=== PATIENT | female | born 1995 | race Caucasian/White ===

== ENCOUNTER 2021-05-25 14:20 | Emergency (ER) | payer SELFPAY ==
[~2021-05-25] VITALS: Ht 152.4 cm; Wt 95.0 kg
[2021-05-25 14:34] VITALS: BP 154/81
[2021-05-25] MEDS ORDERED: AMOX1TAB61 PO (15:18)
--- NOTE | 2021-05-25 15:19 | PHYS DOC ---
Past History Past Surgical History: Tonsillectomy Alcohol Use: None Adult General Chief Complaint Chief Complaint: ANIMAL BITE HPI HPI Patient is a 25 year old female who presents with a dog bite. Patient's own dog bit her this afternoon just prior to arrival. Was bit on the right wrist. She has some numbness over the back of the thumb. There are 2 puncture wounds. She has had a tetanus shot in the last 5 years. No weakness in the hand. Review of Systems Review of Systems Constitutional: Denies fever or chills [] Integument: Dog bite right wrist [] Neurologic: Numbness on the back of the hand. [] All other systems were reviewed and found to be within normal limits, except as documented in this note. Family History Family History No pertinent family history Allergies Allergies Allergies Coded Allergies Type Severity Reaction Last Updated Verified latex Allergy Unknown 05/25/21 Yes Physical Exam Physical Exam Constitutional: Obese. No distress. [] HENT: Normocephalic atraumatic] Eyes: PERRLA, EOMI, conjunctiva normal, no discharge. [] Cardiovascular: Regular rate. No peripheral edema r [] Lungs & Thorax: Normal work of breathing and chest excursion. [] Skin: 2 small (3 mm) puncture wounds on the ventral right wrist. [] Extremities: Radial pulse 2+ and right wrist. Right hand with brisk cap refill in all 5 fingers.. [] Neurologic: Numbness to touch over the dorsum of the right thumb. Motor intact through adjunct english instructor strength, finger abduction, wrist extension to test median, ulnar, and radial nerves (respectively). [] Current Patient Data Vital Signs Vital Signs Date Time Temp Pulse Resp B/P (MAP) Pulse Ox O2 Delivery O2 Flow Rate FiO2 05/25/21 14:34 98.2 88 16 154/81 99 Room Air EKG EKG [] Radiology/Procedures Radiology/Procedures X-ray right wrist [] Impressions: [place] [address] IMAGING REPORT Signed PATIENT: CHASITY HARPER EACCOUNT: [id number] : 1995 LOCATION: ER AGE: 25 SEX: F EXAM STATUS: REG ER ORD. PHYSICIAN: GUZMAN CASTILLO MD REASON: dog bite, eval for foreign body or fx PROCEDURE: WRIST 3V RIGHT XR RT WRIST 3VIEWS History: Dog bite, evaluate for foreign body or fracture. Comparison: None. Technique: 3 views of the right wrist. Findings: Osseous mineralization is normal. No fracture or dislocaton. No significant degenerative changes. Subcutaneous stranding at the radial aspect of the wrist. No radiopaque foreign body identified. Impression: 1. No radiopaque foreign body or acute osseous abnormality of the right wrist. Electronically signed by: Angus Conte MD (05/25/2021 3:28 PM) [id number] DICTATED AND SIGNED BY: ANGUS CONTE MD DATE: 05/25/21 1527 CC: GUZMAN CASTILLO MD; PCP,NO ~MTH0 0 Heart Score C/O Chest Pain: N/A Risk Factors: Risk Factors: DM, Current or recent (<one month) smoker, HTN, HLP, family history of CAD, obesity. Risk Scores: Risk Factors: DM, Current or recent (<one month) smoker, HTN, HLP, family history of CAD, obesity. Course & Med Decision Making Course & Med Decision Making Pertinent Labs and Imaging studies reviewed. (See chart for details) Patient 25-year-old female who presents with a dog bite to her right wrist. The patient's own dog. Dog shots are up-to-date. 2 puncture wounds on the right wrist were identified. No evidence of vascular injury. She does have some numbness over the posterior aspect of the hand, that may represent a small neuropraxia. She has motor function intact. Do not feel that she requires emergent orthopedic evaluation. Puncture wounds were irrigated thoroughly with tap water. Her tetanus is up-to-date. Police were notified of the dog bite. X-ray was obtained to evaluate for fracture or retained foreign body. The wound was left open to allow for adequate drainage. Augmentin was prescribed for antibiotic prophylaxis. 1516 Dragon Disclaimer Dragon Disclaimer This electronic medical record was generated, in whole or in part, using a voice recognition dictation system. Departure Departure: Impression: Primary Impression: Dog bite of right wrist Disposition: HOME / SELF CARE / HOMELESS Condition: IMPROVED Referrals: PCP,NO (PCP) Since you do not have a PCP, please call the number for the [facility] at [phone]. Additional Instructions: Please call the number attached to establish with a primary care office. Your bites are at risk for infection. You will need to take antibiotics to prevent this. Please take full course of Augmentin as prescribed. If you develop increasing swelling, pain, redness, heat, or thick drainage from the site these are all signs of infection and need to be evaluated immediately. Scripts Amoxicillin/Potassium Clav (AUGMENTIN 875-125 TABLET) 1 Each Tablet 1 TAB PO BID for Dog bite ppx for 7 Days, #14 TAB 0 Refills Prov: GUZMAN CASTILLO MD 05/25/21 GUZMAN CASTILLO MD May 25, 2021 15:18
--- NOTE | 2021-05-25 15:30 | RAD ---
XR RT WRIST 3VIEWS History: Dog bite, evaluate for foreign body or fracture. Comparison: None. Technique: 3 views of the right wrist. Findings: Osseous mineralization is normal. No fracture or dislocaton. No significant degenerative changes. Sub cutaneous stranding at the radial aspect of the wrist. No radiopaque foreign body identified. Impression: 1. No radiopaque foreign body or acute osseous abnormality of the right wrist. Electronically signed by: Angus Conte MD (05/25/2021 3:28 PM) [id number]
== END 2021-05-25 15:58 | disposition home or self-care (01) ==
LOC: ER 14:20
DX: S61.551A Open bite of right wrist, initial encounter (principal); W54.0XXA Bitten by dog, initial encounter; Y93.89 Activity, other specified; Y92.89 Other specified places as the place of occurrence of the external cause; Y99.8 Other external cause status
CPT/HCPCS: 73110; 99283

== ENCOUNTER 2021-05-27 08:09 | Emergency (ER) | payer SELFPAY ==
[~2021-05-27] VITALS: Ht 152.4 cm; Wt 121.0 kg
[~2021-05-27 08:09] MED LIST: AMOX1TAB61 PO
[2021-05-27] MEDS ORDERED: KETOROLAC 15 MG/ML VIAL. IVP ONE (08:30)
[2021-05-27] MEDS ORDERED: IV NORMAL SALINE 1,000ML 1,000 ML IV ONE (08:30)
--- NOTE | 2021-05-27 08:37 | PHYS DOC ---
Past History Additional Past Medical Histor: "Enlarged liver" Past Surgical History: Tonsillectomy Smoking: Non-smoker Alcohol Use: None Drug Use: Marijuana General Adult EDM: Chief Complaint: VAGINAL BLEEDING HPI: HPI: 25-year-old female presents with report of "heavy" vaginal bleeding x9 days. Patient reports history of heavy vaginal bleeding in the past however has not lasted as long as this episode. Patient denies history of use of blood thinners. Reports has not followed with DOCTOR NATUROPATHIC. Reports some back cramping pain. Denies fever or chills. Denies . Patient reports she does not "sleep with men". Patient does report some associated dizziness and lightheadedness. Review of Systems: Review of Systems: Constitutional: Denies fever or chills Eyes: Denies redness or eye pain HENT: Denies nasal congestion or sore throat Respiratory: Denies cough or shortness of breath Cardiovascular: Denies chest pain or palpitations GI: Reports pelvic cramping pain; denies nausea or vomiting /DOCTOR NATUROPATHIC: Denies dysuria or hematuria; reports abnormal heavy vaginal bleeding Musculoskeletal: Reports back cramping pain; denies joint pain Integument: Denies rash or skin lesions Neurologic: Denies headache, focal weakness or sensory changes Complete systems were reviewed and found to be within normal limits, except as documented in this note. Current Medications: Current Meds: Current Medications Medications (Trade) Dose Ordered Sig/Acacia Start Time Stop Time Status Last Admin Dose Admin Ketorolac Tromethamine (Toradol 15mg Vial) 15 mg 1X ONCE 05/27/21 08:30 05/27/21 08:31 UNV Sodium Chloride 1,000 ml @ 1,000 mls/hr 1X ONCE 05/27/21 08:30 05/27/21 09:29 UNV Allergies: Allergies: Allergies Coded Allergies Type Severity Reaction Last Updated Verified latex Allergy Unknown 05/27/21 Yes Physical Exam: PE: Constitutional: Well developed, obese, no acute distress, non-toxic appearance HENT: Normocephalic, atraumatic Eyes: Conjunctiva normal, no discharge Neck: Normal range of motion, supple Lungs & Thorax: No respiratory distress, equal chest rise and fall Abdomen: Soft, no tenderness, no guarding/rebound tenderness/distention Pelvic exam: Cassandra Pedersen RN, small clots noted to vaginal os, no significant active bleeding, no discharge noted, no CMT, no adnexal tenderness Skin: Warm, dry, no erythema, no rash Back: No tenderness, no CVA tenderness Extremities: No tenderness, ROM intact, no edema Neurologic: Alert and oriented X 3, no focal deficits noted Psychologic: Affect normal, judgment normal EKG: EKG: [] Radiology/Procedures: Radiology/Procedures: PROCEDURE: US PELVIS W/TV US PELVIS W/TV History: Reason: menorrhagia / Spl. Instructions: / History: Comparison: None Technique: Grayscale and color Doppler imaging of the pelvis was performed using transabdominal and transvaginal technique. Findings: The uterus measures 8.1 x 5.1 x 4.5 cm. Uterus has an unremarkable appearance. The endometrial stripe measures 2.1 mm. Right ovary measures 4.1 x 3.0 x 4.0 cm. Right ovarian cyst with peripheral daughter cysts measures 3.6 x 3.6 x 2.5 cm. Left ovary not identified due to positioning and overlying structures. Normal Doppler flow to the ovaries. No adnexal masses are seen. IMPRESSION: 1. Thickened endometrium depending on phase of menstruation. 2. Left ovarian cyst. Electronically signed by: Gary Munoz DO (05/27/2021 9:17 AM) [id number] Heart Score: C/O Chest Pain: N/A Course & Med Decision Making: Course & Med Decision Making Pertinent Labs and Imaging studies reviewed. (See chart for details) Patient presents with abnormal vaginal bleeding. Vital signs stable. Labs obtained and posted to chart. Upreg negative. H&H stable. Pelvic exam performed. Chlamydia/Gonorrhea cultures pending. Patient declines empiric treatment. Wet mount negative. Pelvic ultrasound without significant finding. Ovarian cyst noted. IV fluid hydration given. Patient stable for discharge with outpatient follow-up with PCP/DOCTOR NATUROPATHIC. Discussed findings and plan with patient, who acknowledges understanding and agreement. Roxanna Disclaimer: Roxanna Disclaimer: This electronic medical record was generated, in whole or in part, using a voice recognition dictation system. Departure Departure: Impression: Primary Impression: Menorrhagia Qualified Codes: N92.1 - Excessive and frequent menstruation with irregular cycle Additional Impression: Ovarian cyst Qualified Codes: N83.201 - Unspecified ovarian cyst, right side Disposition: HOME / SELF CARE / HOMELESS Condition: STABLE Referrals: PCP,MAX (PCP) Patient Instructions: Menorrhagia, [id number], Ovarian Cyst, [id number] Additional Instructions: Increase fluid hydration. Take over the counter Tylenol and/or Ibuprofen for pain or discomfort. JASMYNE JACKSON DO May 27, 2021 08:37
[2021-05-27 08:59] LABS: BASO # 0.1 x10^3/uL (0.0-0.2); BASO % 1 % (0-3); EOS # 0.1 x10^3/uL (0.0-0.7); EOS % 2 % (0-3); HEMATOCRIT 37.9 % (36.0-47.0); HEMOGLOBIN 12.7 g/dL (12.0-15.5); LYMPH % 32 % (24-48); MEAN CORPUSCULAR HEMOGLOBIN 29 pg (25-35); MEAN CORPUSCULAR HGB CONC 34 g/dL (31-37); MEAN CORPUSCULAR VOLUME 86 fL (79-100); MONO # 0.9 x10^3/uL (0.0-1.1); MONO % 10 % (0-9); NEUT # 5.1 x10^3uL (1.8-7.7); NEUT % 55 % (31-73); PLATELET COUNT 303 x10^3/uL (140-400); RED BLOOD COUNT 4.41 x10^6/uL (3.50-5.40); RED CELL DISTRIBUTION WIDTH 14.4 % (11.5-14.5); WHITE BLOOD COUNT 9.2 x10^3/uL (4.0-11.0)
[2021-05-27 09:16] LABS: BACTERIA,URINE 0 /HPF (0-FEW); BILIRUBIN,URINE NEG (NEG); CLARITY,URINE CLEAR; COLOR,URINE YELLOW; GLUCOSE,URINE NEG (NEG); NITRITE,URINE NEG (NEG); RBC,URINE OCC /HPF (0-2); SQUAMOUS EPITHELIAL CELL,UR MOD /LPF; UROBILINOGEN,URINE 0.2 mg/dL (0.2 mg/dL)
--- NOTE | 2021-05-27 09:19 | RAD ---
US PELVIS W/TV History: Reason: menorrhagia / Spl. Instructions: / History: Comparison: None Technique: Grayscale and color Doppler imaging of the pelvis was performed using transabdominal and t ransvaginal technique. Findings: The uterus measures 8.1 x 5.1 x 4.5 cm. Uterus has an unremarkable appearance. The endometrial stri pe measures 2.1 mm. Right ovary measures 4.1 x 3.0 x 4.0 cm. Right ovarian cyst with peripheral daughter cysts measures 3 .6 x 3.6 x 2.5 cm. Left ovary not identified due to positioning and overlying structures. Normal Doppler flow to the ovaries. No adnexal masses are seen. IMPRESSION: 1. Thickened endometrium depending on phase of menstruation. 2. Left ovarian cyst. Electronically signed by: Gary Munoz DO (05/27/2021 9:17 AM) [id number]
[2021-05-27 11:07] VITALS: BP 144/80
[2021-05-28 19:08] LABS: CHLAMYDIA PROBE Negative (Negative)
== END 2021-05-27 11:07 | disposition home or self-care (01) ==
LOC: ER 08:09
DX: N92.1 Excessive and frequent menstruation with irregular cycle (principal); N83.201 Unspecified ovarian cyst, right side; Z91.040 Latex allergy status
CPT/HCPCS: 36415; 76830; 76856; 81001; 81025; 85025; 87491; 87591; 96361; 96374; 99284; J1885; J7030; Q0111

== ENCOUNTER 2021-11-09 21:59 | Emergency (ER) | payer SELFPAY ==
[~2021-11-09] VITALS: Ht 162.6 cm; Wt 121.0 kg
[2021-11-09 22:29] VITALS: BP 140/90
[2021-11-09] MEDS ORDERED: ONDANSETRON PF 4 MG/2 ML VIAL. ONE (22:47)
--- NOTE | 2021-11-09 22:52 | PHYS DOC ---
Past History Additional Past Medical Histor: "Enlarged liver" Past Surgical History: Tonsillectomy Smoking: Non-smoker Alcohol Use: None Drug Use: Marijuana Adult General Chief Complaint Chief Complaint: NAUSEA/VOMITING/DIARRHEA HPI HPI Patient is a 26-year-old female presenting for nausea vomit diarrhea. Symptom onset was 2 hours ago. Reports last p.o. ingestion was at work, states she works at [employer] and had a chicken sandwich. Ports approximately 8 hours later developing generalized abdominal pain, nausea and had numerous bouts of nonbloody nonbilious emesis and diarrhea. Symptoms have been constant since onset. Nothing known makes better, p.o. intake makes worse. Timing of symptoms has been constant since onset. No prior abdominal surgeries or notable medical issues. She is not vaccinated against COVID-19 Review of Systems Review of Systems Fourteen body systems of review of systems have been reviewed. See HPI for pertinent positives and negative responses, other george all other systems are negative, non-pertinent or non-contributory Current Medications Current Medications Current Medications Medications (Trade) Dose Ordered Sig/Acacia Start Time Stop Time Status Last Admin Dose Admin Ondansetron HCl (Zofran) 4 mg STK-MED ONCE 11/09/21 22:47 11/09/21 22:47 DC Allergies Allergies Allergies Coded Allergies Type Severity Reaction Last Updated Verified latex Allergy Unknown 05/27/21 Yes Physical Exam Physical Exam Constitutional: Well developed, obese, age-appropriate, moderate distress due to pain but is non-toxic appearance. HENT: Normocephalic, atraumatic, bilateral external ears normal, oropharynx moist, no oral exudates, nose normal. Eyes: PERRLA, EOMI, conjunctiva normal, no discharge. Neck: Normal range of motion, no tenderness, supple, no stridor. Cardiovascular: Heart rate regular, sinus rhythm, no murmurs rubs or gallops Lungs & Thorax: Bilateral breath sounds clear to auscultation Abdomen: Bowel sounds normal, soft, generalized abdominal tenderness with guarding present, no rebound, no masses, no pulsatile masses. Nonsurgical abdomen, no peritoneal signs Skin: Warm, dry, no erythema, no rash. Back: No tenderness, no CVA tenderness. Extremities: No tenderness, no cyanosis, no clubbing, ROM intact, no edema. Neurologic: Alert and oriented X 3, grossly normal motor & sensory function, no focal deficits noted. Psychologic: Anxious affect and mood Current Patient Data Vital Signs Vital Signs Date Time Temp Pulse Resp B/P (MAP) Pulse Ox O2 Delivery O2 Flow Rate FiO2 11/09/21 22:29 97.7 87 18 140/90 (107) 98 Room Air Lab Results Laboratory Tests Test 11/09/21 22:50 11/09/21 23:25 11/09/21 23:39 White Blood Count 15.3 x10^3/uL Red Blood Count 4.54 x10^6/uL Hemoglobin 11.6 g/dL Hematocrit 36.4 % Mean Corpuscular Volume 80 fL Mean Corpuscular Hemoglobin 26 pg Mean Corpuscular Hemoglobin Concent 32 g/dL Red Cell Distribution Width 16.7 % Platelet Count 398 x10^3/uL Neutrophils (%) (Auto) 74 % Lymphocytes (%) (Auto) 18 % Monocytes (%) (Auto) 7 % Eosinophils (%) (Auto) 1 % Basophils (%) (Auto) 0 % Neutrophils # (Auto) 11.3 x10^3uL Lymphocytes # (Auto) 2.8 x10^3/uL Monocytes # (Auto) 1.1 x10^3/uL Eosinophils # (Auto) 0.1 x10^3/uL Basophils # (Auto) 0.0 x10^3/uL Segmented Neutrophils % 68 % Band Neutrophils % 3 % Lymphocytes % 21 % Monocytes % 6 % Eosinophils % 2 % Platelet Estimate Adequate Urine Collection Type Unknown Urine Color Yellow Urine Clarity Clear Urine pH 5.5 Urine Specific Hugo >=1.030 Urine Protein Neg Urine Glucose (UA) Neg mg/dL Urine Ketones (Stick) Neg mg/dL Urine Blood Trace Urine Nitrite Neg Urine Bilirubin Neg Urine Urobilinogen Dipstick 0.2 mg/dL Urine Leukocyte Esterase Neg Urine RBC Occ /HPF Urine WBC Occ /HPF Urine Squamous Epithelial Cells Mod /LPF Urine Bacteria 0 /HPF Sodium Level 141 mmol/L Potassium Level 4.3 mmol/L Chloride Level 103 mmol/L Carbon Dioxide Level 25 mmol/L Anion Gap 13 Blood Urea Nitrogen 15 mg/dL Creatinine 0.7 mg/dL Estimated GFR (Cockcroft-Gault) 99.6 BUN/Creatinine Ratio 21 Glucose Level 100 mg/dL Calcium Level 8.8 mg/dL Total Bilirubin 0.3 mg/dL Aspartate Amino Transf (AST/SGOT) 80 U/L Alanine Aminotransferase (ALT/SGPT) 187 U/L Alkaline Phosphatase 116 U/L Total Protein 7.3 g/dL Albumin 3.7 g/dL Albumin/Globulin Ratio 1.0 Lipase 136 U/L Influenza Type A (Rapid) Negative Influenza Type B (Rapid) Negative SARS-CoV-2 Antigen (Rapid) Negative Bedside Urine HCG, Qualitative hcg negative Current Medications Medications (Trade) Dose Ordered Sig/Acacia Route PRN Reason Start Time Stop Time Status Last Admin Dose Admin Ondansetron HCl (Zofran) 4 mg STK-MED ONCE .ROUTE 11/09/21 22:47 11/09/21 22:47 DC Ondansetron HCl (Zofran) 4 mg 1X ONCE IVP 11/09/21 23:00 11/09/21 23:01 DC 11/09/21 22:53 Fentanyl Citrate (Fentanyl 2ml Vial) 75 mcg 1X ONCE IVP 11/09/21 23:00 11/09/21 23:01 DC 11/09/21 22:57 Iohexol (Omnipaque 300 Mg/ml) 75 ml 1X ONCE IV 11/09/21 23:00 11/09/21 23:02 DC 11/09/21 23:54 EKG EKG [] Radiology/Procedures Radiology/Procedures CT ABDOMEN+PELVIS W Clinical Indication: Reason: epigastric pain, OMNI 300, 75ml / Spl. Instructions: / History: Comparison: Pelvic ultrasound May 27, 2021. Technique: Helical CT imaging of the abdomen and pelvis is performed after 75 cc of Omnipaque 300 IV contrast. Oral contrast not administered. Findings: The lung bases are clear. Cardiac size is normal. There is fatty infiltration of the liver. Focal fatty sparing along the gallbladder fossa. The gallbladder, spleen, pancreas, adrenal glands, abdominal aorta, and kidneys are normal. The stomach is unremarkable. No dilated small bowel. No colon wall thickening is seen. The appendix is not identified, no secondary signs of appendicitis. No abdominal adenopathy or free fluid. The ovaries are symmetric. The endometrium is prominent, similar to prior ultrasound. The urinary bladder is normal. No pelvic free fluid is seen. There is no inguinal adenopathy. There is no acute bone abnormality. There is posterior disc osteophyte complex of L5/S1 with probable abutment of the left S1 nerve root. Correlate for any radiculopathy. IMPRESSION: 1. No acute abdominal or pelvic abnormality. 2. Fatty infiltration of the liver. 3. The endometrium is prominent, similar to prior ultrasound. Suggest outpatient pelvic ultrasound. Electronically signed by: Christopher You MD (11/10/2021 12:24 AM) [facility] [place] Heart Score C/O Chest Pain: No Risk Factors: Risk Factors: DM, Current or recent (<one month) smoker, HTN, HLP, family history of CAD, obesity. Risk Scores: Risk Factors: DM, Current or recent (<one month) smoker, HTN, HLP, family history of CAD, obesity. Course & Med Decision Making Course & Med Decision Making ABCs unremarkable HPI physical exam and comprehensive ER work-up nonconcerning for any emergent or surgical issues I reviewed entirety of ER findings with patient Patient's nausea vomiting diarrhea likely self-limiting/viral illness in etiology. Symptoms improved with IV fluid rehydration, pain and antiemetics. I offered COVID testing but patient deferred Also disclosed patient's transaminitis and disclose this might be elevated with acute GI illness and/or COVID-19 infection. This is a known finding for patient with close outpatient follow-up advised Also disclosed patient's prominent endometrium, this is also a known finding. 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 Strict return precautions discussed at length with continued supportive care advised Roxanna Disclaimer Dragbutch Disclaimer This electronic medical record was generated, in whole or in part, using a voice recognition dictation system. Departure Departure: Impression: Primary Impression: Nausea vomiting and diarrhea Additional Impressions: Abnormal finding on CT scan Transaminitis Disposition: HOME / SELF CARE / HOMELESS Condition: STABLE Referrals: PCP,NO (PCP) Patient Instructions: Nausea and Vomiting Additional Instructions: You were seen for nausea and vomiting. You most likely have a viral illness which should resolve in the next few days to a week. You should return to the ED if you develop abdominal pain, fever > 100.3, black/bloody stools, black/bloody vomiting, cannot keep water down, or any other new or concerning symptoms. Scripts Ondansetron (ONDANSETRON ODT) 4 Mg Tab.rapdis 1 TAB PO PRN Q6-8HRS for NAUSEA, #16 TAB Prov: SUSANA WORLEY DO 11/10/21 Problem Qualifiers SUSANA WORLEY DO Nov 09, 2021 22:52
[2021-11-09] MEDS ORDERED: ONDANSETRON PF 4 MG/2 ML VIAL. IVP ONE (23:00)
[2021-11-09] MEDS ORDERED: IOHEXOL 300 MG/ML 75 ML VIAL. IV ONE (23:00)
[2021-11-09 23:20] LABS: BASO % 0 % (0-3); EOS # 0.1 x10^3/uL (0.0-0.7); EOS % 1 % (0-3); HEMATOCRIT 36.4 % (36.0-47.0); HEMOGLOBIN 11.6 g/dL (12.0-15.5); LYMPH # 2.8 x10^3/uL (1.0-4.8); LYMPH % 18 % (24-48); MEAN CORPUSCULAR HEMOGLOBIN 26 pg (25-35); MEAN CORPUSCULAR HGB CONC 32 g/dL (31-37); MEAN CORPUSCULAR VOLUME 80 fL (79-100); MONO # 1.1 x10^3/uL (0.0-1.1); MONO % 7 % (0-9); NEUT # 11.3 x10^3uL (1.8-7.7); NEUT % 74 % (31-73); PLATELET COUNT 398 x10^3/uL (140-400); RED BLOOD COUNT 4.54 x10^6/uL (3.50-5.40); RED CELL DISTRIBUTION WIDTH 16.7 % (11.5-14.5); WHITE BLOOD COUNT 15.3 x10^3/uL (4.0-11.0)
[2021-11-09 23:35] LABS: CALCIUM 8.8 mg/dL (8.5-10.1); CREATININE 0.7 mg/dL (0.6-1.0); GFR 99.6; POTASSIUM 4.3 mmol/L (3.5-5.1)
[2021-11-09 23:40] LABS: ALBUMIN 3.7 g/dL (3.4-5.0); TOTAL BILIRUBIN 0.3 mg/dL (0.2-1.0); TOTAL PROTEIN 7.3 g/dL (6.4-8.2)
[2021-11-09 23:47] LABS: % BANDS 3 % (0-9); % EOS 2 % (0-5); % LYMPHS 21 % (24-48); % MONOS 6 % (0-10); % SEGS 68 % (35-66); PLT ESTIMATE ADEQUATE (ADEQUATE)
[2021-11-10 00:18] LABS: BACTERIA,URINE 0 /HPF (0-FEW); BILIRUBIN,URINE NEG (NEG); CLARITY,URINE CLEAR; COLOR,URINE YELLOW; GLUCOSE,URINE NEG (NEG); NITRITE,URINE NEG (NEG); RBC,URINE OCC /HPF (0-2); SQUAMOUS EPITHELIAL CELL,UR MOD /LPF; UROBILINOGEN,URINE 0.2 mg/dL (0.2 mg/dL); WBC,URINE OCC /HPF (0-4)
[2021-11-10 00:18] LABS: INFLUENZA A PATIENT NEGATIVE (NEGATIVE); INFLUENZA B PATIENT NEGATIVE (NEGATIVE)
--- NOTE | 2021-11-10 00:26 | RAD ---
PQRS Compliance Statement: One or more of the following individualized dose reduction techniques were utilized for this examinat ion: 1. Automated exposure control 2. Adjustment of the mA and/or kV according to patient size 3. Use of iterative reconstruction technique CT ABDOMEN+PELVIS W Clinical Indication: Reason: epigastric pain, OMNI 300, 75ml / Spl. Instructions: / History: Comparison: Pelvic ultrasound May 27, 2021. Technique: Helical CT imaging of the abdomen and pelvis is performed after 75 cc of Omnipaque 300 IV contrast. Oral contrast not administered. Findings: The lung bases are clear. Cardiac size is normal. There is fatty infiltration of the liver. Focal fatty sparing along the gallbladder fossa. The gallbl adder, spleen, pancreas, adrenal glands, abdominal aorta, and kidneys are normal. The stomach is unremarkable. No dilated small bowel. No colon wall thickening is seen. The appendix i s not identified, no secondary signs of appendicitis. No abdominal adenopathy or free fluid. The ovaries are symmetric. The endometrium is prominent, similar to prior ultrasound. The urinary hima dder is normal. No pelvic free fluid is seen. There is no inguinal adenopathy. There is no acute bone abnormality. There is posterior disc osteophyte complex of L5/S1 with probable abutment of the left S1 nerve root. Correlate for any radiculopathy. IMPRESSION: 1. No acute abdominal or pelvic abnormality. 2. Fatty infiltration of the liver. 3. The endometrium is prominent, similar to prior ultrasound. Suggest outpatient pelvic ultrasound. Electronically signed by: Christopher You MD (11/10/2021 12:24 AM) [facility]
[2021-11-10] MEDS ORDERED: ONDA4TAB12 PO (01:40)
[2021-11-10] MEDS ORDERED: ONDANSETRON PF 4 MG/2 ML VIAL. IVP ONE (01:45)
== END 2021-11-10 02:01 | disposition home or self-care (01) ==
LOC: ER 21:59
DX: R93.5 Abnormal findings on diagnostic imaging of other abdominal regions, including retroperitoneum (principal); R74.01 Elevation of levels of liver transaminase levels; R11.2 Nausea with vomiting, unspecified; R19.7 Diarrhea, unspecified; R10.84 Generalized abdominal pain; Z20.822 Contact with and (suspected) exposure to COVID-19; Z91.040 Latex allergy status
CPT/HCPCS: 36415; 74177; 80053; 81001; 81025; 83690; 85007; 85025; 87428; 96374; 96375; 96376; 99285; J2405; J3010; Q9967

== ENCOUNTER 2021-11-20 22:57 | Emergency (ER) | payer SELFPAY ==
[~2021-11-20] VITALS: Ht 152.4 cm; Wt 118.0 kg
[~2021-11-20 22:57] MED LIST changes: +ONDA4TAB12 PO
[2021-11-20] MEDS ORDERED: PROMETHAZINE 25 MG TABLET. PO ONE (23:45)
[2021-11-20] MEDS ORDERED: IV RINGERS SOLUTION,LACTATED 1,000 ML IV ONE (23:45)
[2021-11-20] MEDS ORDERED: MIDAZOLAM HCL PF 5 MG/5 ML VIAL. IM ONE (23:45)
[2021-11-20] MEDS ORDERED: ONDANSETRON ODT 4 MG TAB.RAPDIS PO ONE (23:45)
--- NOTE | 2021-11-20 23:55 | PHYS DOC ---
Past History Additional Past Medical Histor: "Enlarged liver" Past Surgical History: Tonsillectomy Smoking: Non-smoker Alcohol Use: None Drug Use: Marijuana Adult General Chief Complaint Chief Complaint: ABDOMINAL PAIN HPI HPI Patient is a 26-year-old female presents with a chief complaint of abdominal bloating and constipation. States over the last couple of days she is only had small hard bowel movement. States she may have IBS as talked about with previous physicians but no official diagnosis has been made. States that she usually has soft stools. States she tried some [id number] stool softener but could not remember the name. Denies any recent travel, traumas, illness, fe vers, chest pain, shortness of breath, nausea, vomiting, diarrhea, blood in the stool, dysuria or hematuria. Review of Systems Review of Systems Review of systems otherwise unremarkable except noted in HPI Allergies Allergies Allergies Coded Allergies Type Severity Reaction Last Updated Verified latex Allergy Unknown 05/27/21 Yes Physical Exam Physical Exam Constitutional: Well developed, well nourished, no acute distress, non-toxic appearance. [] HENT: Normocephalic, atraumatic, oropharynx moist, Eyes: conjunctiva normal, no discharge. [] Neck: Normal range of motion, no tenderness, supple, no stridor. [] Cardiovascular: Sinus tachycardia Lungs & Thorax: Bilateral breath sounds clear to auscultation [] Abdomen: soft, no tenderness, no masses, no pulsatile masses. [] Skin: Warm, dry, no erythema, no rash. [] Back: no CVA tenderness. [] Neurologic: Alert and oriented X 3, no focal deficits noted. [] Psychologic: Affect normal, judgement normal, mood normal. [] Current Patient Data Vital Signs Vital Signs Date Time Temp Pulse Resp B/P (MAP) Pulse Ox O2 Delivery O2 Flow Rate FiO2 11/20/21 23:04 98.5 119 16 140/99 (113) 98 Room Air EKG EKG [] Radiology/Procedures Radiology/Procedures [] Heart Score C/O Chest Pain: No Risk Factors: Risk Factors: DM, Current or recent (<one month) smoker, HTN, HLP, family history of CAD, obesity. Risk Scores: Risk Factors: DM, Current or recent (<one month) smoker, HTN, HLP, family history of CAD, obesity. Course & Med Decision Making Course & Med Decision Making Patient is a 26-year-old female who presents with constipation and abdominal bloating Vital signs notable for sinus tachycardia. Physical exam noted above. Urinalysis not concerning. negative. Imaging notable for at least moderate stool burden with no obvious obstructive pattern. Laboratory analysis not concerning. Discussed managing constipation at home with different strategies. Discussed different medications and diet. Discussed fluid intake. Given mag citrate. Advised on diet over the next couple of days. Advised use of stool softener. Advised to follow-up in the morning with primary care physician and given contact information for local free clinics to do so. Patient requested a work note, as she left work tonight for constipation. Gave return precautions to the ED. Patient grateful, verbalized understanding and agreed with plan of discharge. Dragon Disclaimer Dragon Disclaimer This electronic medical record was generated, in whole or in part, using a voice recognition dictation system. Departure Departure: Impression: Primary Impression: Constipation Disposition: HOME / SELF CARE / HOMELESS Condition: GOOD Referrals: PCP,MAX (PCP) YAYA SMITH Patient Instructions: Constipation, Adult Additional Instructions: Thank you for coming into the emergency department tonight and allowing us to take care of you. Please read the attached information carefully to go back over things we discussed. Please adjust your diet over the next couple of days as we discussed. Please use a stool softener as we discussed. Please follow-up with a primary care physician as soon as you can update on your ED visit and establish care. You are given local resource packet with free clinics available. You requested a work note for your constipation. Please come back to the ED with new or concerning symptoms as we discussed. BK LOPEZ MD Nov 20, 2021 23:55
[2021-11-20 23:59] LABS: BACTERIA,URINE 0 /HPF (0-FEW); BILIRUBIN,URINE NEG (NEG); CLARITY,URINE CLEAR; COLOR,URINE YELLOW; GLUCOSE,URINE NEG (NEG); NITRITE,URINE NEG (NEG); SQUAMOUS EPITHELIAL CELL,UR OCC /LPF; UROBILINOGEN,URINE 0.2 mg/dL (0.2 mg/dL); WBC,URINE 0 /HPF (0-4)
[2021-11-21 00:14] LABS: CALCIUM 8.8 mg/dL (8.5-10.1); CREATININE 0.7 mg/dL (0.6-1.0)
[2021-11-21 00:15] LABS: GFR 99.6; POTASSIUM 4.1 mmol/L (3.5-5.1)
[2021-11-21 00:20] LABS: ALBUMIN 3.4 g/dL (3.4-5.0); TOTAL BILIRUBIN 0.3 mg/dL (0.2-1.0); TOTAL PROTEIN 6.8 g/dL (6.4-8.2)
--- NOTE | 2021-11-21 00:26 | RAD ---
EXAM: ABDOMEN ONE VIEW. HISTORY: Abdominal pain and bloating. COMPARISON: 11/09/2021. FINDINGS: A frontal view of the abdomen is obtained. There are no distended small bowel loops. There is gas distally. IMPRESSION: 1. No evidence of obstruction. Electronically signed by: Flores Darnell MD (11/21/2021 12:24 AM) [facility]
[2021-11-21 00:33] VITALS: BP 154/84
[2021-11-21] MEDS ORDERED: MAGNESIUM CITRATE 296 ML SOLUTION. PO ONE (00:45)
[2021-11-21 01:08] LABS: BASO % 0 % (0-3); EOS # 0.1 x10^3/uL (0.0-0.7); EOS % 2 % (0-3); HEMATOCRIT 35.2 % (36.0-47.0); HEMOGLOBIN 11.3 g/dL (12.0-15.5); LYMPH # 2.8 x10^3/uL (1.0-4.8); LYMPH % 28 % (24-48); MEAN CORPUSCULAR HEMOGLOBIN 26 pg (25-35); MEAN CORPUSCULAR HGB CONC 32 g/dL (31-37); MEAN CORPUSCULAR VOLUME 80 fL (79-100); MONO # 0.7 x10^3/uL (0.0-1.1); MONO % 7 % (0-9); NEUT # 6.3 x10^3uL (1.8-7.7); NEUT % 63 % (31-73); PLATELET COUNT 375 x10^3/uL (140-400); RED BLOOD COUNT 4.41 x10^6/uL (3.50-5.40); RED CELL DISTRIBUTION WIDTH 16.2 % (11.5-14.5)
== END 2021-11-21 00:40 | disposition home or self-care (01) ==
LOC: ER 22:57
DX: K59.00 Constipation, unspecified (principal); Z91.040 Latex allergy status
CPT/HCPCS: 36415; 74018; 80053; 81001; 81025; 83690; 85025; 99284

== ENCOUNTER 2021-11-30 09:12 | Emergency (ER) | payer SELFPAY ==
[~2021-11-30] VITALS: Ht 152.4 cm; Wt 118.0 kg
[2021-11-30 09:39] VITALS: BP 143/74
--- NOTE | 2021-11-30 09:54 | PHYS DOC ---
Past History Additional Past Medical Histor: "Enlarged liver" Past Surgical History: Tonsillectomy Smoking: Non-smoker Alcohol Use: None Drug Use: Marijuana Adult General Chief Complaint Chief Complaint: VAGINAL PROBLEM HPI HPI Patient is a 26-year-old female presenting for vaginal bleeding. This is an acute on chronic issue. States she has had a regular menstrual cycles and has been bleeding "for the past 8 months". She has been seen multiple times in our ER for various complaints recently and after CT abdomen pelvis November 09 revealed enlarged endometrium, she was seen in outpatient setting by her EQUIPMENT MECH[facility]IC SPECIALIST. Reports she has history of endometriosis, she was seen yesterday in clinic and had pelvic exam attempted but given gross amount of blood examination was cut short. It was advised that there is no immediate indication for hospitalization but there was low threshold to present to ER if ongoing bleeding continued. Nonetheless, patient reports she continues to bleed bright red painless blood without any obvious ingestion, trauma, sexual intercourse or other exposure. Nothing known makes better or worse. States she has been soaking a tampon fully within an hour and reports this has been going on for past 8 months but worse past several weeks. Admits she was put on oral contraceptive pills in the past which helped with her symptoms and bleeding but recently ran out. States she had new prescription prescribed yesterday but is yet to start these. Only pain is suprapubic pressure and cramping in nature Review of Systems Review of Systems Fourteen body systems of review of systems have been reviewed. See HPI for pertinent positives and negative responses, other george all other systems are negative, non-pertinent or non-contributory Allergies Allergies Allergies Coded Allergies Type Severity Reaction Last Updated Verified latex Allergy Unknown 05/27/21 Yes Physical Exam Physical Exam Constitutional: Well developed, well nourished, no acute distress, non-toxic appearance. HENT: Normocephalic, atraumatic, bilateral external ears normal, oropharynx moist, no oral exudates, nose normal. Eyes: PERRLA, EOMI, conjunctiva normal, no discharge. Neck: Normal range of motion, no tenderness, supple, no stridor. Cardiovascular: Heart rate tachycardic, sinus rhythm, no murmurs rubs or gallops Lungs & Thorax: Bilateral breath sounds clear to auscultation Abdomen: Bowel sounds normal, soft and obese, no tenderness, no masses, no pulsatile masses. Nonsurgical abdomen, no peritoneal signs Skin: Warm, dry, no erythema, no rash. Back: No tenderness, no CVA tenderness. Extremities: No tenderness, no cyanosis, no clubbing, ROM intact, no edema. Neurologic: Alert and oriented X 3, grossly normal motor & sensory function, no focal deficits noted. Psychologic: Anxious affect and mood Current Patient Data Vital Signs Vital Signs Date Time Temp Pulse Resp B/P (MAP) Pulse Ox O2 Delivery O2 Flow Rate FiO2 11/30/21 09:39 97.9 120 24 143/74 (97) 99 Room Air Vital Signs Date Time Temp Pulse Resp B/P (MAP) Pulse Ox O2 Delivery O2 Flow Rate FiO2 11/30/21 09:39 97.9 120 24 143/74 (97) 99 Room Air Lab Results Laboratory Tests Test 11/30/21 09:32 11/30/21 09:43 11/30/21 10:00 Urine Collection Type Unknown Urine Color Irene Urine Clarity Hazy Urine pH 6.0 Urine Specific [place] >=1.030 Urine Protein 30 mg/dl Urine Glucose (UA) Neg mg/dL Urine Ketones (Stick) Neg mg/dL Urine Blood Mod Urine Nitrite Neg Urine Bilirubin Small Urine Urobilinogen Dipstick 0.2 mg/dL Urine Leukocyte Esterase Neg Urine RBC Tntc /HPF Urine WBC 1-4 /HPF Urine Squamous Epithelial Cells Few /LPF Urine Bacteria 0 /HPF Urine Mucus Slight /LPF Bedside Urine HCG, Qualitative hcg negative White Blood Count 8.6 x10^3/uL Red Blood Count 3.70 x10^6/uL Hemoglobin 9.4 g/dL Hematocrit 29.3 % Mean Corpuscular Volume 79 fL Mean Corpuscular Hemoglobin 26 pg Mean Corpuscular Hemoglobin Concent 32 g/dL Red Cell Distribution Width 16.0 % Platelet Count 337 x10^3/uL Neutrophils (%) (Auto) 60 % Lymphocytes (%) (Auto) 29 % Monocytes (%) (Auto) 9 % Eosinophils (%) (Auto) 2 % Basophils (%) (Auto) 1 % Neutrophils # (Auto) 5.2 x10^3uL Lymphocytes # (Auto) 2.5 x10^3/uL Monocytes # (Auto) 0.8 x10^3/uL Eosinophils # (Auto) 0.1 x10^3/uL Basophils # (Auto) 0.0 x10^3/uL Sodium Level 139 mmol/L Potassium Level 4.0 mmol/L Chloride Level 107 mmol/L Carbon Dioxide Level 23 mmol/L Anion Gap 9 Blood Urea Nitrogen 16 mg/dL Creatinine 0.8 mg/dL Estimated GFR (Cockcroft-Gault) 85.4 Glucose Level 96 mg/dL Calcium Level 8.2 mg/dL Current Medications Medications (Trade) Dose Ordered Sig/[place] Route PRN Reason Start Time Stop Time Status Last Admin Dose Admin Ketorolac Tromethamine (Toradol 30mg Vial) 30 mg 1X ONCE IVP 11/30/21 10:00 11/30/21 10:01 DC 11/30/21 10:00 Sodium Chloride 1,000 ml @ 1,000 mls/hr 1X ONCE IV 11/30/21 10:30 11/30/21 11:29 11/30/21 10:30 EKG EKG [] Radiology/Procedures Radiology/Procedures [] Heart Score C/O Chest Pain: No Risk Factors: Risk Factors: DM, Current or recent (<one month) smoker, HTN, HLP, family history of CAD, obesity. Risk Scores: Risk Factors: DM, Current or recent (<one month) smoker, HTN, HLP, family history of CAD, obesity. Course & Med Decision Making Course & Med Decision Making ABCs unremarkable HPI physical exam and comprehensive ER work-up nonconcerning for any emergent or surgical issues Disclosed entirety of ER work-up with patient with good understanding. I recommended pelvic exam but patient deferred. Reports her p presenting suprapubic discomfort improved with administered Toradol I disclose little indication for emergent ultrasound in ER. Patient not emergently bleeding out any discussed little indication for hospital transfer at this time. She has had chronic menstrual cycle difficulties that responded with OCPs, she has not been on these recently and new prescription was called in yesterday by her EQUIPMENT MECHANIC SPECIALIST. Joint decision to start these immediately when getting home Discussed need for continued supportive care practices that should include NSAIDs, Tylenol and joint decision was prescribed extremely short-term dose of narcotic pain medication for as needed pain purposes. Patient has good access to [facility]CH[facility] and plans to follow-up within upcoming 72 hours for repeat evaluation in outpatient setting for outpatient pelvic ultrasound and further discussion on management of her endometriosis Dragon Disclaimer Dragon Disclaimer This electronic medical record was generated, in whole or in part, using a voice recognition dictation system. Departure Departure: Impression: Primary Impression: Vaginal bleeding Additional Impression: Endometriosis Disposition: HOME / SELF CARE / HOMELESS Condition: STABLE Referrals: GEOFFREY LANDAVERDE (PCP) Additional Instructions: You were seen for vaginal bleeding. While the etiology of your bleeding is not precisely known at this time, further studies are needed to find the answer to this issue. It is likely due to endometriosis for which your outpatient [facility]CH[facility] doctors have been working you up and treating you for. Please take your previously prescribed oral contraceptive pills as this will likely help your symptoms more than anything. You should utilize NSAIDs and/or Tylenol as needed for pain. You were prescribed an extremely short-term dose of narcotic pain medication that should be used for severe pain purposes only. You need to return to the ED immediately if you develop worsening pain, heavy vaginal bleeding, chest pain, shortness of breath, excessive fatigue, lightheadedness, or any other new or concerning symptoms. Scripts Hydrocodone Bit/Acetaminophen (HYDROCODONE-APAP 5-325 ) 1 Each Tablet 1 TAB PO PRN Q6HRS PRN for PAIN, #10 TAB 0 Refills Prov: SUSANA WORLEY DO 11/30/21 Problem Qualifiers SUASNA WORLEY DO Nov 30, 2021 09:54
[2021-11-30] MEDS ORDERED: KETOROLAC 30 MG/ML VIAL. IVP ONE (10:00)
[2021-11-30 10:09] LABS: BACTERIA,URINE 0 /HPF (0-FEW); CLARITY,URINE HAZY; COLOR,URINE AMBER; GLUCOSE,URINE NEG (NEG); NITRITE,URINE NEG (NEG); RBC,URINE TNTC /HPF (0-2); SQUAMOUS EPITHELIAL CELL,UR FEW /LPF; UROBILINOGEN,URINE 0.2 mg/dL (0.2 mg/dL)
[2021-11-30 10:18] LABS: BASO % 1 % (0-3); EOS # 0.1 x10^3/uL (0.0-0.7); EOS % 2 % (0-3); HEMATOCRIT 29.3 % (36.0-47.0); HEMOGLOBIN 9.4 g/dL (12.0-15.5); LYMPH # 2.5 x10^3/uL (1.0-4.8); LYMPH % 29 % (24-48); MEAN CORPUSCULAR HEMOGLOBIN 26 pg (25-35); MEAN CORPUSCULAR HGB CONC 32 g/dL (31-37); MEAN CORPUSCULAR VOLUME 79 fL (79-100); MONO # 0.8 x10^3/uL (0.0-1.1); MONO % 9 % (0-9); NEUT # 5.2 x10^3uL (1.8-7.7); NEUT % 60 % (31-73); PLATELET COUNT 337 x10^3/uL (140-400); WHITE BLOOD COUNT 8.6 x10^3/uL (4.0-11.0)
[2021-11-30 10:29] LABS: CALCIUM 8.2 mg/dL (8.5-10.1); CREATININE 0.8 mg/dL (0.6-1.0); GFR 85.4
[2021-11-30] MEDS ORDERED: IV NORMAL SALINE 1,000ML 1,000 ML IV ONE (10:30)
[2021-11-30] MEDS ORDERED: HYDR-2155 PO (10:46)
== END 2021-11-30 10:50 | disposition home or self-care (01) ==
LOC: ER 09:12
DX: N93.8 Other specified abnormal uterine and vaginal bleeding (principal); N80.9 Endometriosis, unspecified; F12.10 Cannabis abuse, uncomplicated; Z91.040 Latex allergy status
CPT/HCPCS: 36415; 80048; 81001; 81025; 84146; 84443; 85025; 85610; 85730; 87491; 87591; 96361; 96374; 99283; J1885; J7030